=== PATIENT | male | born 1995 | race Two or more races ===

== ENCOUNTER 2016-12-07 01:16 | Emergency (ER) | payer SELFPAY ==
[~2016-12-07] VITALS: Ht 180.3 cm; Wt 85.6 kg
[2016-12-07 02:36] LABS: HEMATOCRIT 44.3 % (38.0-50.0); MCH 29.5 PG (29.0-34.0); MCHC 33.9 G/DL (30.0-36.0); MEAN PLAT.VOLUME 10.7 uM^3 (9.0-12.4); PLATELET COUNT 288 K/uL (156-360); RBC DIS.WIDTH-CV 12.7 % (11.8-14.6); RED BLOOD COUNT 5.09 M/uL (4.00-5.50); WHITE BLOOD COUNT 9.5 K/uL (4.1-10.2)
[2016-12-07 02:48] LABS: CHLORIDE 108 mEq/L (99-109); POTASSIUM 3.6 mEq/L (3.7-5.4); SODIUM 142 mEq/L (136-147)
[2016-12-07 02:50] LABS: GLUCOSE 109 mg/dL (70-99)
[2016-12-07 02:52] LABS: ANION GAP 16 MEQ/L (2-14)
[2016-12-07 02:53] LABS: SERUM ETHYL ALCOHOL 281 mg/dL
[2016-12-07 02:54] LABS: GFR ESTIMATE (CALCULATED) > 59 mL/min/
[2016-12-07 02:55] LABS: UREA NITROGEN (BUN) 11 mg/dL (9-23)
[2016-12-07 03:17] LABS: AMPHETAMINE NEGATIVE (500 ng/mL); BARBITURATES NEGATIVE (200 ng/mL); BENZODIAZEPINES NEGATIVE (150 ng/mL); COCAINE NEGATIVE (150 ng/mL); INTERNAL CONTROLS VALID? YES; METHADONE NEGATIVE (200 ng/mL); METHAMPHETAMINE NEGATIVE (500 ng/mL); OPIATES (MORPHINE) NEGATIVE (100 ng/mL); OXYCODONE NEGATIVE (100 ng/mL); PHENCYCLIDINE NEGATIVE (25 ng/mL); PROPOXYPHENE NEGATIVE (300 ng/mL); THC CANNABINOIDS NEGATIVE (50 ng/mL); TRICYCLIC ANTIDEPRESSANTS NEGATIVE (300 ng/mL)
[2016-12-07 08:24] VITALS: BP 00/00
== END 2016-12-07 08:25 | disposition home or self-care (01) ==
LOC: EME → EDBD 01:16 → EME 08:21
PROVIDERS: Emergency Medicine
DX: F10.10 Alcohol abuse, uncomplicated (principal); Y90.8 Blood alcohol level of 240 mg/100 ml or more
CPT/HCPCS: 71010; 80048; 85027; 99281; 99285; G0480; J1630; J2060; J2250